=== PATIENT | male | born 1955 | race Caucasian/White ===

== ENCOUNTER 2021-10-03 07:40 | Emergency (ER) | payer MEDICARE, OTHER ==
[2021-10-03 08:54] LABS: BASOPHIL 0.4 % (0-2); EOSINOPHIL 0.8 % (0-7); HCT 48.6 % (42.0-52.0); HGB 16.7 g/dl (13.2-18.0); MCH 32.2 pg (25.0-31.0); MCHC 34.4 g/dL (32.0-36.0); MCV 93.6 fL (78.0-100.0); MONOCYTE 9.8 % (0-12); MPV 10.1 fL (6.0-9.5); NEUTROPHIL 61.7 % (41-80); NRBC 0; PLT 316 K/uL (150-400); RBC 5.19 M/uL (4.70-6.00); RDW 13.3 % (11.5-14.0); WBC 10.6 K/uL (4.0-10.5)
[2021-10-03 08:59] LABS: BILIRUBIN 1+ mg/dL (NEGATIVE); BLOOD 3+ Ery/uL (NEGATIVE); CLARITY CLEAR (CLEAR); COLOR YELLOW (YELLOW); GLUCOSE (U) NORMAL (NORMAL); LEUKOCYTES NEGATIVE Leu/uL (NEGATIVE); NITRITE NEGATIVE (NEGATIVE); PROTEIN TRACE (LOW) mg/dL (NEGATIVE); SPECIFIC GRAVITY 1.025 (1.001-1.030); UROBILINOGEN 0.2 mg/dL (0.2-1.0); pH 5.5 (5.0-9.0)
[2021-10-03 09:03] LABS: LACTIC ACID 1.4 mmol/L (0.4-1.9)
[2021-10-03 09:03] LABS: BACTERIA TRACE
[2021-10-03 09:06] LABS: MUCOUS MODERATE
[2021-10-03 09:20] LABS: ALBUMIN 3.9 g/dL (3.4-5.0); BILIRUBIN - TOTAL 1.7 mg/dL (0.2-1.0); BUN/CREAT RATIO (CALC) 32.7 RATIO; CORONAVIRUS 2019 SARS-COV-2 NEGATIVE (NEGATIVE); CREATININE 1.04 mg/dL (0.67-1.17); GLOBULIN (CALCULATION) 3.4 g/dL; INFLUENZA A NAA NEGATIVE (NEGATIVE); TOTAL PROTEIN 7.3 g/dL (6.4-8.2)
[2021-10-03] MEDS ORDERED: ONDANSETRON ODT4 MG PO (11:27)
== END 2021-10-03 11:40 | disposition home or self-care (01) ==
LOC: FER 07:40
PROVIDERS: Emergency Medicine
DX: B34.9 Viral infection, unspecified (principal); K76.89 Other specified diseases of liver; F17.200 Nicotine dependence, unspecified, uncomplicated; Z88.6 Allergy status to analgesic agent; Z20.822 Contact with and (suspected) exposure to COVID-19
CPT/HCPCS: 36415; 71045; 80053; 81001; 83605; 84145; 85025; 87040; 87088; 93005; J2405; J7030; Q9967; U0002